=== PATIENT | female | born 1985 | race Two or more races ===

== ENCOUNTER 2022-05-08 07:27 | Emergency (ER) | payer OTHER, SELFPAY ==
[2022-05-08 07:35] VITALS: BP 103/74; PULSE 91; RESP 18; TEMP 35.9; O2SAT 100; BMI 23.3
--- NOTE | 2022-05-08 08:31 | ED.GENADULT ---
HPI - General Adult General Time Seen by Provider: 08:31 Date Seen: 05/08/22 Chief complaint: Abdominal Pain Stated complaint: Abdominal pain from miscarriage Time Seen by Provider: 05/08/22 08:23 Source: patient Mode of arrival: ambulatory Limitations: no limitations History of Present Illness HPI narrative: Patient is a 37 year white female who is cared for by an infertility specialist and Herman, who had an ultrasound yesterday that showed a nonviable at 7 weeks, she also had an hCG hCG level that was drawn and went from 800-100 per the family. The doctor reported to the patient that she should receive ER care if she gets increasing pain or problem, she has nose little bit of vaginal bleeding today, had some significant cramping this morning but this is now past she is not bleeding heavily. The patient reports no lightheadedness dizziness no chest pain or breathing problem. Related Data Home Medications Medication Instructions Recorded Confirmed levothyroxine 50 mcg tablet mcg 05/08/22 Allergies Allergy/AdvReac Type Severity Reaction Status Date / Time No Known Drug Allergies Allergy Verified 05/08/22 07:41 Review of Systems Status of ROS: Reports: 6 or more systems reviewed and unremarkable except as noted in History and below PFSH [facility] Medical History No significant past medical history Surgical History No significant past surgical history Social History Smoking Status: Never smoker How often do you have a drink containing alcohol: never AUDIT-C Alcohol total score: 0 Non-prescribed substance use: denies use Exam Narrative: Exam Narrative: Objective: Patient's vital signs are unremarkable, she appears in no apparent distress, she is ambulatory without difficulty, went to the bathroom without difficulty. Denies dizziness or lightheadedness. Abdomen benign soft nontender CV negative Extremities show no edema, neurologic nonfocal grossly Const: Vital Signs, click to edit/add: Vital Signs - 24 hr 05/08/22 07:35 Temperature 96.7 F L Pulse Rate [Pulse Oximeter] 91 Respiratory Rate 18 Blood Pressure [Le ft Upper Arm] 103/74 Pulse Oximetry 100 Oxygen Delivery Me thod Room Air Course Vital Signs Vital signs: Initial Vital Signs Temperature 96.7 F L 05/08/22 07:35 Temperature Source Temporal Artery Scan 05/08/22 07:35 Pulse Rate 91 05/08/22 07:35 Respiratory Rate 18 05/08/22 07:35 Blood Pressure 103/74 05/08/22 07:35 Blood Pressure Mean 83 05/08/22 07:35 Blood Pressure Position Supine 05/08/22 07:35 Pulse Oximetry 100 05/08/22 07:35 Oxygen Delivery Method 05/08/22 07:35 Vital Signs Temperature 96.7 F L 05/08/22 07:35 Pulse Rate 91 05/08/22 07:35 Respiratory Rate 18 05/08/22 07:35 Blood Pressure 103/74 05/08/22 07:35 Pulse Oximetry 100 05/08/22 07:35 Oxygen Delivery Method 05/08/22 07:35 Temperature 96.7 F L 05/08/22 07:35 Pulse Rate 91 05/08/22 07:35 Respiratory Rate 18 05/08/22 07:35 Blood Pressure 103/74 05/08/22 07:35 Pulse Oximetry 100 05/08/22 07:35 Oxygen Delivery Method 05/08/22 07:35 Medical Decision Making MDM Narrative Medical decision making narrative: The patient is a 37 year white female who has been on go undergoing infertility treatments, has a nonviable [address] of no heart on ultrasound noted yesterday, 7 weeks gestation, and a dropping HCG from 800-100. At this point discussed treatment options for the patient she would wish to try some pain medication, does not wish to repeat an ultrasound at this time, her pain is improved, she does not or blood type consult check an ABO Rh type in case she would need RhoGAM Patient's blood type is positive, therefore does need RhoGAM, her pain is gone. She would like to take Tylenol or Advil as needed. I called in some stronger pain medicine if she needs it. Return as needed, update her primary care or fertility doctor tomorrow with symptoms. Lab Data Labs: Lab Results 05/08/22 Range/Units 08:36 Blood Type O Positive Discharge Plan Discharge Clinical Impression: Incomplete miscarriage Prescriptions: No Action levothyroxine 50 mcg tablet Label Comments: TAKE 1 TABLET BY MOUTH DAILY Follow Up/Referrals: Provider,Not a Local [Primary Care Provider] -
[2022-05-08] MEDS: HYDROCODONE/ACETAMIN 7.5-325 TABLET 1 TAB PO (08:53)
== END 2022-05-08 10:05 | disposition home or self-care (01) ==
PROVIDERS: Emergency Provider Family Medicine
DX: O03.4 Incomplete spontaneous abortion without complication (principal)
CPT/HCPCS: 36415; 86900; 86901; 99283; A9270